=== PATIENT | male | born 1945 | race Caucasian/White ===

== ENCOUNTER 2017-09-11 11:54 | Outpatient (CLI) | payer OTHER ==
[2014-01-01 17:38] VITALS: BMI 25.8
== END 2017-09-11 11:55 | disposition home or self-care (01) ==
LOC: LAB 11:54
PROVIDERS: ATTEND Nurse Practitioner Family
DX: R05 Cough (principal); R50.9 Fever, unspecified
CPT/HCPCS: 87651; 87804